=== PATIENT | female | born 1945 ===

== ENCOUNTER 2019-03-07 09:42 | Day surgery (SDC) | payer OTHER | END 2019-03-07 16:10 | disposition home or self-care (01) | LOC: AMB-ENDOS 09:42 | DX: D12.3 Benign neoplasm of transverse colon (principal); D12.4 Benign neoplasm of descending colon; D12.5 Benign neoplasm of sigmoid colon; K64.8 Other hemorrhoids; Z12.11 Encounter for screening for malignant neoplasm of colon ==

== ENCOUNTER 2019-11-28 07:47 | Day surgery (SDC) | payer OTHER | END 2019-11-28 15:10 | disposition home or self-care (01) | LOC: AMB-ENDOS 07:47 | PROVIDERS: ATTEND Colon & Rectal Surgery | DX: K63.5 Polyp of colon (principal); Z20.828 Contact with and (suspected) exposure to other viral communicable diseases; K64.8 Other hemorrhoids ==

== ENCOUNTER 2019-11-29 09:08 | Outpatient (CLI) | payer OTHER | END 2019-11-29 09:14 | disposition home or self-care (01) | LOC: TOM 09:08 | PROVIDERS: ATTEND Colon & Rectal Surgery | DX: K92.1 Melena (principal); K63.5 Polyp of colon ==